=== PATIENT | female | born 1990 | race Hispanic/Latino ===

== ENCOUNTER 2016-11-11 10:33 | Inpatient (IN) | payer OTHER ==
[~2016-11-11] VITALS: Ht 147.3 cm; Wt 66.2 kg
[2016-11-11] VITALS (11 sets, daily range): BP systolic 103–136; BP diastolic 56–83
[~2016-11-11 10:33] MED LIST: IBUPROFEN600 MG PO
[2016-11-11 11:31] LABS: URINE BILIRUBIN - DIPSTICK NEGATIVE (NEGATIVE); URINE BLOOD DIPSTICK TRACE-INTACT (NEGATIVE); URINE CLARITY CLEAR; URINE COLOR YELLOW; URINE GLUCOSE - DIPSTICK NEGATIVE (NEGATIVE); URINE KETONE NEGATIVE (NEGATIVE); URINE NITRITE - DIPSTICK NEGATIVE (Negative); URINE PROTEIN - DIPSTICK TRACE mg/dL (NEG-TRACE); URINE UROBILINOGEN - DIPSTICK 0.2 E.U./dL (0.2)
[2016-11-11 11:33] LABS: URINE LEUK ESTERASE TRACE (NEGATIVE)
[2016-11-11 11:34] LABS: BARBITURATES NEGATIVE (NEGATIVE); COCAINE NEGATIVE (NEGATIVE); METHADONE NEGATIVE (NEGATIVE); OXCYCODONE NEGATIVE (NEGATIVE); TETRAHYDROCANNABIONOL NEGATIVE (NEGATIVE); TRICYLIC ANTIDEPRESSANTS NEGATIVE (NEGATIVE)
[2016-11-11 11:52] LABS: HEMATOCRIT 34.1 % (37.0-47.0); HEMOGLOBIN 10.8 g/dl (12.0-16.0); IMMATURE GRANULOCYTES 0.4 % (0.0-1.0); MEAN CELL VOLUME 79.1 fL CALC (80.0-100.0); MEAN CORPUSCULAR HGB 25.1 pG CALC (26.0-32.0); MEAN CORPUSCULAR HGB CONC 31.7 g/L CALC (32.0-36.0); NEUT# 7.49 thou/uL (2.00-7.15); RED BLOOD COUNT 4.31 mill/uL (4.20-5.60); RED CELL DISTRI WIDTH 14.6 % (11.5-15.5)
[2016-11-11 12:32] LABS: ALBUMIN 3.8 g/dL (3.2-5.0); ALKALINE PHOSPHATASE 311 u/l (38-126); ANION GAP 17 (6-22 (CALC)); BILIRUBIN, TOTAL 0.6 mg/dL (0.0-1.4); BUN 8 mg/dL (7-17); BUN/CREATININE RATIO 14 (12-20 (CALC)); CALCIUM 9.2 mg/dL (8.4-10.2); CARBON DIOXIDE 22 mmol/l (22-30); CHLORIDE 105 mmol/l (95-108); CREATININE 0.6 mg/dL (0.5-1.0); GFR > 60 ML/MIN (>=60 (CALC)); GFR FOR AFR.AMER. > 60 ML/MIN (>=60 (CALC)); GLUCOSE 89 mg/dL (65-105); SGOT/AST 23 u/l (14-36); SGPT/ALT 25 u/l (9-52); SODIUM 140 mmol/l (137-146); TOTAL PROTEIN 6.9 g/dL (6.3-8.2)
[2016-11-12 05:50] LABS: HEMATOCRIT 26.9 % (37.0-47.0); HEMOGLOBIN 8.5 g/dl (12.0-16.0); IMMATURE GRANULOCYTES 0.4 % (0.0-1.0); MEAN CELL VOLUME 80.3 fL CALC (80.0-100.0); MEAN CORPUSCULAR HGB 25.4 pG CALC (26.0-32.0); MEAN CORPUSCULAR HGB CONC 31.6 g/L CALC (32.0-36.0); NEUT# 7.26 thou/uL (2.00-7.15); RED BLOOD COUNT 3.35 mill/uL (4.20-5.60); RED CELL DISTRI WIDTH 14.6 % (11.5-15.5)
[2016-11-12 07:29] VITALS: BP 94/48
[2016-11-12] MEDS ORDERED: IBUPROFEN600 MG PO (09:13)
== END 2016-11-12 13:50 | disposition home or self-care (01) | DRG 775 ==
LOC: OBOP 10:33 → EDSTATUS 10:39 → OBOP 10:52 → OB 10:52 → OBOP 11:09 → OB 11:10 → OBOP 11:19 → OB 11-12 13:50
PROVIDERS: ADMIT Obstetrics & Gynecology; ATTEND Obstetrics & Gynecology
PROC: 10E0XZZ Delivery of Products of Conception, External Approach (ICD-10-PCS; principal; 2016-11-11)
DX: O80 Encounter for full-term uncomplicated delivery (principal); Z37.0 Single live birth; Z3A.39 39 weeks gestation of pregnancy

== ENCOUNTER 2017-10-23 13:42 | Emergency (ER) | payer SELFPAY ==
[~2017-10-23] VITALS: Ht 147.3 cm; Wt 72.0 kg
[2017-10-23 14:12] LABS: URINE BILIRUBIN - DIPSTICK NEGATIVE (NEGATIVE); URINE BLOOD DIPSTICK LARGE (NEGATIVE); URINE COLOR YELLOW; URINE GLUCOSE - DIPSTICK NEGATIVE (NEGATIVE); URINE KETONE NEGATIVE (NEGATIVE); URINE NITRITE - DIPSTICK NEGATIVE (Negative); URINE PROTEIN - DIPSTICK 30 mg/dL (NEG-TRACE); URINE SPECIFIC GRAVITY 1.025; URINE UROBILINOGEN - DIPSTICK 0.2 E.U./dL (0.2)
[2017-10-23 14:15] LABS: URINE LEUK ESTERASE SMALL (NEGATIVE)
[2017-10-23 14:18] LABS: URINE CLARITY SL CLOUDY
[2017-10-23 14:27] LABS: URINE BACTERIA FEW hpf; URINE RBC TNTC RBC/hpf (0-5); URINE SQUAMOUS EPITHELIAL CELL FEW EPI/hpf (0-FEW)
[2017-10-23] MEDS ORDERED: BACTRIM DS1 TAB PO (14:42)
[2017-10-23 14:48] VITALS: BP 123/63
== END 2017-10-23 14:52 | disposition home or self-care (01) | DRG 690 ==
LOC: ED 13:42
PROVIDERS: Family Medicine
DX: N30.00 Acute cystitis without hematuria (principal); B96.20 Unspecified Escherichia coli [E. coli] as the cause of diseases classified elsewhere

== ENCOUNTER 2017-10-25 09:49 | Emergency (ER) | payer SELFPAY ==
[~2017-10-25] VITALS: Ht 147.3 cm; Wt 65.0 kg
[~2017-10-25 09:49] MED LIST changes: +BACTRIM DS1 TAB PO
[2017-10-25 10:41] LABS: URINE BILIRUBIN - DIPSTICK NEGATIVE (NEGATIVE); URINE BLOOD DIPSTICK NEGATIVE (NEGATIVE); URINE COLOR YELLOW; URINE GLUCOSE - DIPSTICK NEGATIVE (NEGATIVE); URINE KETONE NEGATIVE (NEGATIVE); URINE LEUK ESTERASE TRACE (NEGATIVE); URINE NITRITE - DIPSTICK NEGATIVE (Negative); URINE PH 5.5 (4.5-8.0); URINE PROTEIN - DIPSTICK NEGATIVE (NEG-TRACE); URINE SPECIFIC GRAVITY >=1.030; URINE UROBILINOGEN - DIPSTICK 0.2 E.U./dL (0.2)
[2017-10-25 10:49] LABS: URINE CLARITY CLEAR
[2017-10-25] MEDS ORDERED: PYRIDIUM200 MG PO (10:54)
[2017-10-25 11:00] VITALS: BP 111/70
== END 2017-10-25 11:03 | disposition home or self-care (01) | DRG 690 ==
LOC: ED 09:49
PROVIDERS: Emergency Medicine
DX: N34.2 Other urethritis (principal)

== ENCOUNTER 2018-10-14 12:53 | Emergency (ER) | payer SELFPAY ==
[~2018-10-14] VITALS: Ht 147.3 cm; Wt 68.0 kg
[~2018-10-14 12:53] MED LIST changes: +PYRIDIUM200 MG PO
[2018-10-14 13:14] LABS: URINE BILIRUBIN - DIPSTICK NEGATIVE (NEGATIVE); URINE BLOOD DIPSTICK LARGE (NEGATIVE); URINE COLOR YELLOW; URINE GLUCOSE - DIPSTICK NEGATIVE (NEGATIVE); URINE KETONE 15 mg/dL (NEGATIVE); URINE NITRITE - DIPSTICK NEGATIVE (Negative); URINE PH 5.5 (4.5-8.0); URINE PROTEIN - DIPSTICK 100 mg/dL (NEG-TRACE); URINE SPECIFIC GRAVITY >=1.030; URINE UROBILINOGEN - DIPSTICK 0.2 E.U./dL (0.2)
[2018-10-14 13:17] LABS: URINE LEUK ESTERASE SMALL (NEGATIVE)
[2018-10-14 13:19] LABS: URINE WBC 50-100 WBC/hpf (0-5)
[2018-10-14 13:22] LABS: URINE SQUAMOUS EPITHELIAL CELL FEW EPI/hpf (0-FEW)
[2018-10-14] MEDS ORDERED: CEPHALEXIN500 M1 PO (13:26)
[2018-10-14 13:29] VITALS: BP 116/63
== END 2018-10-14 13:38 | disposition home or self-care (01) | DRG 833 ==
LOC: ED 12:53
PROVIDERS: Family Medicine
DX: O23.41 Unspecified infection of urinary tract in pregnancy, first trimester (principal); B96.20 Unspecified Escherichia coli [E. coli] as the cause of diseases classified elsewhere; Z3A.12 12 weeks gestation of pregnancy

== ENCOUNTER 2023-09-21 18:48 | Emergency (ER) | payer SELFPAY ==
[~2023-09-21] VITALS: Ht 147.3 cm; Wt 64.0 kg
[~2023-09-21 18:48] MED LIST changes: +CEPHALEXIN500 M1 PO
[2023-09-21 20:54] VITALS: BP 117/59
== END 2023-09-21 20:54 | disposition home or self-care (01) | DRG 156 ==
LOC: ED 18:48
PROC: 3E1B78Z Irrigation of Ear using Irrigating Substance, Via Natural or Artificial Opening (ICD-10-PCS; principal; 2023-09-21)
PROC: 3E1B78Z Irrigation of Ear using Irrigating Substance, Via Natural or Artificial Opening (ICD-10-PCS; 2023-09-21)
DX: H61.23 Impacted cerumen, bilateral (principal)